=== PATIENT | male | born 1955 | race Caucasian/White ===

== ENCOUNTER 2017-05-30 12:42 | Day surgery (SDC) | payer OTHER ==
--- NOTE | 2017-05-30 11:27 | PDGENHP ---
History & Physical Chief Complaint: R ankle History of Present Illness: 61 y/o fell yielding R carmen pain/swelling, difficulty ambulating Pertinent Past, Social, Family History: Previous smoker 2 PPD. VT. Renal disease - dialysis Relevant Physical Exam: Right ankle swollen tender. Head - normocephalic. Chest - CTA. Abd S,NT,ND Cardiorespiratory Assessment: Previous VT, arrythmia Assessment & Plan Assessment: Right lateral malleolus fx Plan: ORIF R lat malleolus fx
[~2017-05-30 12:42] MED LIST: ceFAZolin 2 GM/DEXTROSE 100 ML IV ONE; ceFAZolin 2 GM/SWFI 2 GM/20 ML SYR IVP ONE
[2017-05-30] MEDS ORDERED: NS 1,000 ML IV ONE (13:12)
[2017-05-30 13:46] LABS: PLATELET COUNT 132 10^3/uL (150-400)
[2017-05-30] MEDS ORDERED: ceFAZolin 2 GM/SWFI 20 ML SYR IVP ONE (13:53)
[2017-05-30 13:59] LABS: INR 0.97 (0.83-1.16); PROTIME(PATIENT) 13.1 SEC (12.0-15.0)
[2017-05-30] MEDS ORDERED: fentaNYL 100 MCG/2 ML INJ ONE (14:37)
[2017-05-30] MEDS ORDERED: MIDAZOLAM 2 MG/2 ML VIAL ONE (14:38)
[2017-05-30] MEDS ORDERED: PROPOFOL/EMULSION 500 MG/50 ML BOTTLE IV ONE (14:38)
[2017-05-30] MEDS ORDERED: BUPIVACAINE 0.5% 10 ML SDV ONE ×4 (14:54→15:06)
--- NOTE | 2017-05-30 15:04 | PDANEPAE ---
ANE History of Present Illness right lateral malleolus ORIF. h/o cardiac arrest 1.5 months ago 2/ 2hyperkalemia. Has since had dialysis catheter fixed. K today 5.5. ANE Past Medical History - Cardiovascular History Hx Hypertension: Yes Hx Arrhythmias: No Hx Chest Pain: No Hx Coronary Artery / Peripheral Vascular Disease: Yes Hx CHF / Valvular Disease: No Hx Palpitations: No Cardiovascular History Comment: CARDIAC ARREST 05/29/2016 TREATED AT [facility] RESULT OF BLOCKED AV FISTULA -HYPERKALEMIA. PACER/ICD PLACED 04/2015 - Pulmonary History Hx COPD: No Hx Asthma/Reactive Airway Disease: No Hx Recent Upper Respiratory Infection: No Hx Oxygen in Use at Home: No Hx Sleep Apnea: Yes Sleep Apnea Screening Result - Last Documented: Positive Pulmonary History Comment: JALEESA USES C-PAP INSTRUCTED TO BRING DOS - Neurologic History Hx Cerebrovascular Accident: No Hx Seizures: No Hx Dementia: No - Endocrine History Hx Diabetes: No Obesity: yes - Renal History Hx Renal Disorders: Yes Renal History Comment: ESRD. DIALYSIS 5X WEEK - Liver History Hx Hepatic Disorders: No - Neurological & Psychiatric Hx Hx Neurological and Psychiatric Disorders: No - Cancer History Hx Cancer: Yes Cancer History Comment: KIDNEY - Congenital Disorder History Hx Congenital Disorders: No - GI History GERD: no Hx Gastrointestinal Disorders: No - Other Health History Other Health History: FELL EARLY MAY AND FX RT ANKLE - Chronic Pain History Chronic Pain: No - Surgical History Prior Surgeries: RT SUBCLAVIAN 05/30/2016. RT NEPHRECTOMY 09/2015. PERITONEAL DIALYSIS CATHETER PLACEMENT 07/01/2015. PORT PLACEMENT IN RIGHT SHOULDER 2015. CYSTOSCOPY. PACEMAKER PLACEMENT 04/2015 ANE Review of Systems Review of systems is: negative Review of Systems: - Exercise capacity METS (RN): 4 METS - Pacemaker Pacemaker Type: Bi-Ventricular, Permanent Pacer/Defib Pacemaker Hairspring I Inspector: Status4 Date Pacemaker Last Checked: 07/14/2015 ANE Patient History - Allergies Allergies/Adverse Reactions: No Known Allergies Allergy (Verified 11/04/15 17:54) - Home Medications Home medications: home medication list seen and reviewed Home Medications: Metoprolol Tartrate [Lopressor 100 mg (*)] 100 mg PO HS 10/18/15 [Last Taken ] clonazePAM [klonoPIN (*)] 2 mg PO HS PRN 10/18/15 [Last Taken 05/29/17] Gabapentin HS 05/29/17 [Last Taken 05/29/17] - NPO status NPO Since - Liquids (Date): 05/30/17 NPO Since - Liquids (Time): 06:00 NPO Since - Solids (Date): 05/29/17 NPO Since - Solids (Time): 21:00 - Anes Hx Anes Hx: no prior problems - Smoking Hx Smoking Status: Former smoker ANE Labs/Vital Signs - Labs Result Diagrams: 05/30/17 13:26 05/30/17 13:26 - Vital Signs Blood Pressure: 97/68 Heart Rate: 90 Respiratory Rate: 16 O2 Sat (%): 95 Height: 190.5 cm Weight: 113.398 kg ANE Physical Exam - Airway Neck exam: FROM Mallampati Score: Class 1 Mouth exam: normal dental/mouth exam - Pulmonary Pulmonary: no respiratory distress - Cardiovascular Cardiovascular: regular rate and rhythym - ASA Status ASA Status: IV ANE Anesthesia Plan Anesthesia Plan: GA with mask Regional Anesthesia: single shot NB, adductor canal FNB, popliteal SNB
[2017-05-30] MEDS ORDERED: PHENYLEPHRINE HCL 100 MCG/ML SYR ONE (15:33)
[2017-05-30] MEDS ORDERED: ACETAMINOPHEN 500 MG TAB PO PRN (15:49)
[2017-05-30] MEDS ORDERED: fentaNYL 100 MCG/2 ML INJ IVP PRN (15:49)
[2017-05-30] MEDS ORDERED: HYDROmorphONE/DILAUDID 1 MG/ML INJ IVP PRN (15:49)
[2017-05-30] MEDS ORDERED: ALBUTEROL 3 ML DEYVIAL IH PRN (15:49)
[2017-05-30] MEDS ORDERED: NALOXONE HCL 0.4 MG/ML INJ IVP PRN (15:49)
[2017-05-30] MEDS ORDERED: NS 500 ML IV PRN (15:49)
[2017-05-30] MEDS ORDERED: ONDANSETRON 4 MG/2 ML VIAL IVP PRN (15:49)
[2017-05-30] MEDS ORDERED: OXYCODONE/APAP 5/325 TAB PO PRN (15:49)
--- NOTE | 2017-05-30 16:12 | POSTOPPROG ---
Post Op Note Date of Operation: 05/30/17 Surgeon: Levar Flanagan Anesthesia: IV Sedation Pre-op Diagnosis: R lat mal fra Post-op Diagnosis: same Procedure: ORIF R lat mal fracture Inf/Abcess present in the surg proc area at time of surgery?: No EBL: Minimal
[2017-05-30 16:18] VITALS: TEMP 97.5
--- NOTE | 2017-05-30 16:24 | POSTANESTH ---
Post Anesthetic Evaluation Cardiovascular Status: Normal, Stable Respiratory Status: Normal, Stable Level of Consciousness/Mental Status: Can Participate in Eval Pain Control: Adequate, Prn Tx Ordered Nausea/Vomiting Control: Adequate, Prn Tx Ordered Complications Possibly Related to Anesthesia: None Noted
[2017-05-30 17:02] VITALS: BP 106/75; PULSE 85; RESP 14; O2SAT 97
--- NOTE | 2017-05-31 11:23 | GOP ---
[f rep st] OPERATIVE REPORT DATE OF OPERATION: 05/30/2017 SURGEON: Levar Flanagan MD ANESTHESIA: Popliteal block performed by the anesthesiologist at my request for both intraoperative analgesia and postoperative pain management, plus IV sedation. PREOPERATIVE DIAGNOSIS: Right lateral malleolus fracture. POSTOPERATIVE DIAGNOSIS: Right lateral malleolus fracture. PROCEDURE PERFORMED: 1. Open reduction, internal fixation, right lateral malleolus fracture. 2. Intraoperative use of fluoroscopy. FINDINGS: ESTIMATED BLOOD LOSS: Minimal. INDICATIONS: The patient sustained a displaced lateral malleolus fracture about 1 week ago in a fall. Based on the displaced unstable nature of his injury it was recommended that operative treatment consisting of open reduction , internal fixation be pursued. The patient acknowledged he understood the potential risks, including, but not limited to, bleeding, infection, neurovascular damage, limb loss, limited limb function, malunion, nonunion, need for hardware removal, pain, functional limitations, arthrosis despite operative treatment, and anesthetic risks. He acknowledged he understood the potential risks, planned procedure, and postoperative plan well. He had his questions answered prior to surgery. He gave his consent for the operative procedure. DESCRIPTION OF PROCEDURE: The patient was brought to the operating room after IV antibiotics were administered. Popliteal block was performed by the anesthesiologist at my request for postoperative pain management. He was placed in a supine position where IV sedation was administered. A tourniquet was placed on his right calf and the patient was transferred to a left lateral decubitus position on the operating table with beanbag support, axillary roll and padding all bony prominences. The right lower leg was prepped and draped in standard sterile fashion. After Isidro wrap exsanguination, tourniquet was inflated to 250. A longitudinal incision was made along the posterior border of the distal fibula. Skin and subcutaneous tissue were sharply incised. Sharp dissection was carried anterior to the peroneal tendons exposing the posterior border of the fibula. The dental pick was used to free up interposed fibrous tissue at the fracture site. Based on the nature of the fracture, a posterior "antiglide" plating was performed. A 7 hole 1/3 tubular plate was placed along the posterior border of the distal fibula. Just proximal to the plane of the fracture, 3.5 mm bicortical screw was placed through the plate in a posterior to anterior direction. As the screw was tightened, the reduction was fine tuned into an anatomic alignment with a dental pick and 2-point reduction clamp. With the fracture held in an anatomically reduced position, a 2.7 mm cortical screw was placed through the plate in a posterior to anterior direction in lag fashion across the fracture. A supplemental 2.7 mm screw was placed distal to this, as well as a 3.5 mm bicortical screw placed in the most proximal hole in the plate. Fluoroscopic views confirmed favorable reduction and hardware placement. Attention was directed toward closure. The deep fascia layer was closed with 2- 0 Vicryl suture in interrupted fashion. Subcutaneous tissue closed with 3-0 Vicryl suture in interrupted fashion. Skin closed with 4-0 nylon interrupted sutures. The wounds were dressed with sterile Adaptic, 4 x 4, and Webril, and leg was placed in a below-knee splint. Patient tolerated the procedure well and was taken to the recovery room, extubated, in stable condition postoperatively. All sponge, needle, and instrument counts were reported to be correct. DRAINS: None. COMPLICATIONS: None. PLAN: The patient was discharged home nonweightbearing on his operative extremity. /[id number]/MODL MTDD
== END 2017-05-30 17:59 | disposition home or self-care (01) ==
LOC: FSGY 12:42
PROVIDERS: ATTEND Orthopaedic Surgery Foot and Ankle Surgery
PROC: 0QSJ04Z Reposition Right Fibula with Internal Fixation Device, Open Approach (ICD-10-PCS; principal; 2017-05-30 14:00)
DX: S82.61XA Displaced fracture of lateral malleolus of right fibula, initial encounter for closed fracture (principal)
CPT/HCPCS: C1713; J0690; J2250; J2370; J2704; J3010

== ENCOUNTER 2017-08-11 15:35 | Observation (INO) | payer OTHER ==
--- NOTE | 2017-08-11 15:45 | EDPHY ---
H & P Stated Complaint: Dialysis cath 'came out' from right chest. Time Seen by Provider: 08/11/17 15:45 HPI/ROS: HPI CHIEF COMPLAINT: Dialysis catheter pulled out of right chest HISTORY OF PRESENT ILLNESS: Patient is a 61-year-old male, he has end-stage renal disease, he does at home dialysis 5 days a week. He is due for dialysis tomorrow. He did complete 2 hr of dialysis today which is normal for him. He was putting shirt back on and dialysis catheter fell out of the right chest are was pulled out. He denies any complaints. Denies chest pain or shortness of breath. Came to emergency room to have a new dialysis catheter placed. Past Medical History: End-stage renal disease, renal cell carcinoma, hypertension, coronary artery disease Past Surgical History: Av fistula surgery, nephrectomy, Social History: Denies drugs alcohol tobacco. Family History: Noncontributory ROS REVIEW OF SYSTEMS: A comprehensive 10 point review of systems is otherwise negative aside from elements mentioned in the history of present illness. Exam Constitutional triage nursing summary reviewed, vital signs reviewed, awake/ alert. Eyes normal conjunctivae and sclera, EOMI, PERRLA. HENT normal inspection, atraumatic, moist mucus membranes, no epistaxis, neck supple/ no meningismus, no raccoon eyes. Respiratory clear to auscultation bilaterally, normal breath sounds, no respiratory distress, no wheezing. Cardiovascular rate normal, regular rhythm, no murmur, no edema, distal pulses normal. Gastrointestinal soft, non-tender, no rebound, no guarding, normal bowel sounds, no distension, no pulsatile mass. Genitourinary no CVA tenderness. Musculoskeletal no midline vertebral tenderness, full range of motion, no calf swelling, no tenderness of extremities, no meningismus, good pulses, neurovascularly intact. Skin pink, warm, & dry, no rash, skin atraumatic. Neurologic awake, alert and oriented x 3, AAOx3, moves all 4 extremities equally, motor intact, sensory intact, CN II-XII intact, normal cerebellar, normal vision, normal speech. Psychiatric normal mood/affect. Heme/Lymph/Immune no lymphadenopathy. Differential Diagnosis: Includes but is not limited to in a particular order need for dialysis catheter, dialysis catheter removal, pneumothorax Medical Decision Making: Plan for this patient chest x-ray two view to rule out pneumothorax, and will consult Dr. Hankins for possible dialysis catheter placement. Re-evaluation: Chest x-ray two view reviewed by myself. No evidence of pneumothorax. 1607: I did consult Dr. CLAUDE Hankins he will come and see and evaluate the patient for placement of the dialysis cath. 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, GLOMERULAR NEPHRITIS, HEMACHROMATOSIS, OAP, MIGRAIN KHAN, hypertension, right nephrectomy and ureter removal, hyperlipidemia, TURP, hemodilysis MWF - Social History Smoking Status: Former smoker Constitutional: Initial Vital Signs Temperature (C) 36.3 C 08/11/17 15:40 Heart Rate 102 H 08/11/17 15:40 Respiratory Rate 16 08/11/17 15:40 Blood Pressure 110/99 H 08/11/17 15:40 O2 Sat (%) 93 08/11/17 15:40 O2 Delivery Mode Room Air Allergies/Adverse Reactions: No Known Allergies Allergy (Verified 11/04/15 17:54) Home Medications: Medication Instructions Recorded Gabapentin [Neurontin 100 MG (*)] 300 mg PO HS 08/11/17 Metoprolol Tartrate 100 mg PO HS 08/11/17 Sucroferric Oxyhydroxide [Velphoro] 1,000 mg PO TIDMEAL 08/11/17 clonazePAM [klonoPIN (*)] 2 mg PO HS 08/11/17 Hydrocodone/APAP 5/325 [[place] 1 - 2 tab PO Q6H PRN #20 tab 08/12/17 5/325 (*)] Medical Decision Making - Data Points Medications Given: Discontinued Medications Bacitracin (Bacitracin Ointment Tube) Confirm Administered Dose 14.2 jacobo TP .STK -MED ONE Stop: 08/12/17 08:41 Last Admin: 08/12/17 09:01 Dose: 1 tube Bupivacaine HCl (Sensorcaine 0.5% Vial) Confirm Administered Dose 30 ml .ROUTE .STK-MED ONE Stop: 08/12/17 07:12 Last Admin: 08/12/17 08:34 Dose: 6 ml Cefazolin Sodium (Ancef) Confirm Administered Dose [address] ONE Stop: 08/12/17 08:19 Last Admin: 08/12/17 08:19 Dose: 1 gm Heparin Sodium (Porcine) (Heparin Sodium) Confirm Administered Dose 1,[address] ONE Stop: 08/12/17 07:13 Last Admin: 08/12/17 08:37 Dose: Not Given Heparin Sodium (Porcine) (Heparin Sodium) Confirm Administered Dose 50,[address] ONE Stop: 08/12/17 07:13 Last Admin: 08/12/17 08:37 Dose: 50,000 unit Heparin Sodium (Porcine) (Heparin Lock Flush) Confirm Administered Dose 2,[address] ONE Stop: 08/12/17 07:17 Last Admin: 08/12/17 08:36 Dose: 2,500 unit Lidocaine HCl (Lidocaine Hcl 1%) Confirm Administered Dose 300 mg .ROUTE .[facility] ONE Stop: 08/12/17 07:12 Last Admin: 08/12/17 09:01 Dose: Not Given Departure - Departure Disposition: [place] [facility] In[facility] Acute Clinical Impression: Complications, dialysis, catheter, mechanical Qualifiers: Encounter type: initial encounter Qualified Code(s): T82.49XA - Other complication of vascular dialysis catheter, initial encounter Condition: Fair
--- NOTE | 2017-08-11 17:11 | GHP ---
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 He does have a history of arteriovenous fistula creation in his left wrist. This does have a thrill. However, they tell me it is nonfunctional due to an "occlusion" secondary to his pacemaker wiring. I do not have a record of this at this moment. He denies any pain, swelling, or redness at the catheter site. They had no bleeding upon dislodgement of the catheter. 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 They now present to the emergency department. PAST MEDICAL HISTORY: As per HPI includes end-stage renal disease on hemodialysis at home, also glomerular nephritis, renal cancer, permanent pacemaker. PAST SURGICAL AND PROCEDURAL HISTORY: Includes tunneled neck catheter, left upper extremity radiocephalic AV fistula creation, nephrectomy for renal cancer , permanent pacemaker placement, ORIF of an ankle fracture, and ablation radiotherapy for metastatic renal cancer in the spine. MEDICATIONS: Include metoprolol, gabapentin, Klonopin, and Velphoro. ALLERGIES: No known drug allergies. 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 FAMILY HISTORY: Noncontributory. REVIEW OF SYSTEMS: Negative aside from HPI. PHYSICAL EXAMINATION: GENERAL: A 61-year-old male, alert and oriented x3, in no acute distress. HEENT: Normocephalic, atraumatic. Sclerae white. Right neck catheter site is clean without erythema. CHEST: Clear to auscultation bilaterally. No wheezes, rhonchi, or rales. CARDIAC: Regular rate and rhythm. ABDOMEN: Soft, nontender. EXTREMITIES: Warm and dry with fistula at the left wrist with good thrill, compressible. IMPRESSION: This is a 61-year-old male with end-stage renal disease, needing dialysis, now with lost access after his neck catheter became dislodged. PLAN: Admit the patient for surgery. We plan to place a tunneled neck catheter with fluoroscopic guidance. This will likely be right-sided due to his pacemaker. Will also have to make arrangements for pacemaker interrogation. He will be n.p.o. Will get preoperative labs including a basic metabolic panel. At a later date, we can try to investigate his left upper extremity fistula further versus creating a right sided fistula. Patient seemed happy with his neck catheter at the time being. Dr. Hankins will also see and examine the patient. Surgery will likely be tomorrow, although patient is pushing for surgery tonight. Either way, he will stay overnight in the hospital. He did eat rice with turkey and water at 1:00 p.m. today. /[id number]/MODL MTDD
[2017-08-11 18:31] LABS: PLATELET COUNT 102 10^3/uL (150-400)
--- NOTE | 2017-08-11 20:47 | SOAPPROG ---
SOAP Progress Note Assessment/Plan: Assessment: 61 male with need for replacement dialysis cath/ risks and options fully discussed chest clear cor rr abd soft extrem left avf poor flow Plan:palindrome cath in am 08/11/17 20:46 Objective: Vital Signs Temp Pulse Resp BP Pulse Ox 36.4 C 93 16 109/82 H 97 08/11/17 20:28 08/11/17 20:28 08/11/17 20:28 08/11/17 20:28 08/11/17 20:28 Laboratory Results 08/11/17 18:25 08/11/17 18:25 08/10/17 08/11/17 08/12/17 05:59 05:59 05:59 Intake Total 350 Output Total 0 Balance 350 ICD10 Worksheet Patient Problems: Problems Problem Status Onset Congestive heart failure (CHF) Acute Hematuria Acute Hyperkalemia, diminished renal excretion Acute Pericardial effusion Acute Renal failure (ARF), acute on chronic Acute Vomiting and diarrhea Acute Benign prostatic hypertrophy Chronic Cardiac defibrillator in place Chronic Cardiomyopathy Chronic Chronic kidney disease, stage V Chronic Hemochromatosis Chronic LBBB (left bundle branch block) Chronic Membranous glomerulonephritis Chronic Obstructive sleep apnea Chronic Pacemaker Chronic
[2017-08-12] MEDS ORDERED: BUPIVACAINE 0.5% 30 ML SDV ONE (07:11)
[2017-08-12] MEDS ORDERED: HEPARIN 1000 UNIT/1 ML MDV ONE (07:12)
[2017-08-12] MEDS ORDERED: HEPARIN 50,000 UNIT/10 ML VIAL ONE (07:12)
--- NOTE | 2017-08-12 07:41 | PDANEPAE ---
ANE History of Present Illness ESRD now with dislodged Palindrome catheter ANE Past Medical History - Cardiovascular History Hx Hypertension: Yes Hx Arrhythmias: No Hx Chest Pain: No Hx Coronary Artery / Peripheral Vascular Disease: Yes Hx CHF / Valvular Disease: No Hx Palpitations: No Cardiovascular History Comment: CARDIAC ARREST 05/29/2016 TREATED AT [facility] RESULT OF BLOCKED AV FISTULA -HYPERKALEMIA. PACER/ICD PLACED 04/2015 - Pulmonary History Hx COPD: No Hx Asthma/Reactive Airway Disease: No Hx Recent Upper Respiratory Infection: No Hx Oxygen in Use at Home: Yes O2 in Use at Home (L/minute): 2 Hx Sleep Apnea: Yes Sleep Apnea Screening Result - Last Documented: Positive Pulmonary History Comment: JALEESA USES C-PAP INSTRUCTED TO BRING DOS - Neurologic History Hx Cerebrovascular Accident: No Hx Seizures: No Hx Dementia: No - Endocrine History Hx Diabetes: No - Renal History Hx Renal Disorders: Yes Renal History Comment: ESRD. DIALYSIS 5X WEEK - Liver History Hx Hepatic Disorders: No - Neurological & Psychiatric Hx Hx Neurological and Psychiatric Disorders: No - Cancer History Hx Cancer: Yes Cancer History Comment: KIDNEY - Congenital Disorder History Hx Congenital Disorders: No - GI History Hx Gastrointestinal Disorders: No - Other Health History Other Health History: FELL EARLY MAY AND FX RT ANKLE - Chronic Pain History Chronic Pain: No - Surgical History Prior Surgeries: RT SUBCLAVIAN 05/30/2016. RT NEPHRECTOMY 09/2015. PERITONEAL DIALYSIS CATHETER PLACEMENT 07/01/2015. PORT PLACEMENT IN RIGHT SHOULDER 2015. CYSTOSCOPY. PACEMAKER PLACEMENT 04/2015 ANE Review of Systems Review of Systems: - Exercise capacity METS (RN): 4 METS - Pacemaker Pacemaker Relay Checker: GalaDo (will have ICD turned off) Date Pacemaker Last Checked: 07/14/2015 ANE Patient History - Allergies Allergies/Adverse Reactions: No Known Allergies Allergy (Verified 11/04/15 17:54) - Home Medications Home medications: home medication list seen and reviewed Home Medications: Gabapentin [Neurontin 100 MG (*)] 300 mg PO HS 08/11/17 [Last Taken 08/11/17] Metoprolol Tartrate [Metoprolol Tartrate] 100 mg PO HS 08/11/17 [Last Taken 09/22] Sucroferric Oxyhydroxide [Velphoro] 1,000 mg PO TIDMEAL 08/11/17 [Last Taken 10/22 12:00] clonazePAM [klonoPIN (*)] 2 mg PO HS 08/11/17 [Last Taken 08/10/17] - NPO status NPO Status: no food or drink >8 hours NPO Since - Liquids (Date): 08/12/17 NPO Since - Liquids (Time): 00:00 NPO Since - Solids (Date): 08/12/17 NPO Since - Solids (Time): 00:00 - Anes Hx Anes Hx: no prior problems - Smoking Hx Smoking Status: Former smoker - Alcohol Use Alcohol Use: Rarely - Family Anes Hx Family Anes Hx: none ANE Labs/Vital Signs - Labs Result Diagrams: 08/11/17 18:25 08/11/17 18:25 - Vital Signs Blood Pressure: 98/65 Heart Rate: 95 Respiratory Rate: 16 O2 Sat (%): 95 Height: 190 cm Weight: 113 kg ANE Physical Exam - Airway Neck exam: FROM Mallampati Score: Class 2 Mouth exam: normal dental/mouth exam - Pulmonary Pulmonary: no respiratory distress - Cardiovascular Cardiovascular: regular rate and rhythym - ASA Status ASA Status: III ANE Anesthesia Plan Anesthesia Plan: GA with mask Total IV Anesthesia: Yes
[2017-08-12] MEDS ORDERED: fentaNYL 100 MCG/2 ML INJ ONE (07:51)
[2017-08-12] MEDS ORDERED: PROPOFOL/EMULSION 500 MG/50 ML BOTTLE IV ONE ×2 (07:53→08:19)
[2017-08-12] MEDS ORDERED: LIDOCAINE 2% 100 MG/5 ML SYR ONE (07:55)
[2017-08-12] MEDS ORDERED: PHENYLEPHRINE HCL 100 MCG/ML SYR ONE (08:10)
[2017-08-12] MEDS ORDERED: ceFAZolin 1 GM VIAL ONE (08:18)
[2017-08-12] MEDS: LIDOCAINE 1% 300 MG/30 ML SDV ONE ×2 (08:36→09:01)
[2017-08-12] MEDS ORDERED: BACITRACIN ZINC 14.2 GM OINTTUBE TP ONE (08:40)
--- NOTE | 2017-08-12 09:18 | POSTOPPROG ---
Post Op Note Date of Operation: 08/12/17 Surgeon: Flavio Hankins Anesthesiologist: CHANTE Anesthesia: GET(General Endotracheal) Pre-op Diagnosis: RENAL FAILURE Post-op Diagnosis: SAME Indication: LOSS OF ACCESS Procedure: IJ PALINDROME CATH WITH FLOURO AND ULTRASOUND GUIDANCE Findings: GOOD FLOW AND POSITION Inf/Abcess present in the surg proc area at time of surgery?: Yes Depth: Deep Incisional (Fascial) EBL: Minimal Complications: 0
[2017-08-12] MEDS ORDERED: ACETAMINOPHEN 500 MG TAB PO PRN (09:23)
[2017-08-12] MEDS ORDERED: ONDANSETRON 4 MG/2 ML VIAL IVP PRN (09:23)
[2017-08-12] MEDS ORDERED: NALOXONE HCL 0.4 MG/ML INJ IVP PRN (09:23)
[2017-08-12] MEDS ORDERED: NS 500 ML IV PRN (09:23)
[2017-08-12] MEDS ORDERED: ALBUTEROL 3 ML DEYVIAL IH PRN (09:23)
[2017-08-12] MEDS ORDERED: LABETALOL HCL 5 MG/ML 20 ML MDV IVP PRN (09:23)
[2017-08-12] MEDS ORDERED: PHENYLEPHRINE HCL 100 MCG/ML SYR IVP PRN (09:23)
[2017-08-12] MEDS ORDERED: fentaNYL 100 MCG/2 ML INJ IVP PRN (09:23)
[2017-08-12 11:26] VITALS: BP 93/59
== END 2017-08-12 11:44 | disposition home or self-care (01) ==
LOC: F3E 20:18
PROVIDERS: ADMIT Surgery; ATTEND Surgery
DX: T82.42XA Displacement of vascular dialysis catheter, initial encounter (principal); Z46.82 Encounter for fitting and adjustment of non-vascular catheter; N18.6 End stage renal disease; I12.0 Hypertensive chronic kidney disease with stage 5 chronic kidney disease or end stage renal disease; N28.89 Other specified disorders of kidney and ureter; I25.10 Atherosclerotic heart disease of native coronary artery without angina pectoris; G43.909 Migraine, unspecified, not intractable, without status migrainosus; E78.5 Hyperlipidemia, unspecified; G47.33 Obstructive sleep apnea (adult) (pediatric); Z85.528 Personal history of other malignant neoplasm of kidney; Z87.891 Personal history of nicotine dependence; Z95.0 Presence of cardiac pacemaker; Z99.2 Dependence on renal dialysis; Z90.5 Acquired absence of kidney
CPT/HCPCS: 36558; 71045; 71046; 76001; G0378; C1750; J0690; J1642; J1644; J2001; J2370; J2704; J3010

== ENCOUNTER 2018-07-27 13:58 | Emergency (ER) | payer OTHER ==
--- NOTE | 2018-07-27 14:11 | EDPHY ---
H & P Stated Complaint: cp stabbing since 0200 Time Seen by Provider: 07/27/18 14:10 HPI/ROS: CHIEF COMPLAINT: Chest pain HISTORY OF PRESENT ILLNESS: The patient presents to the ED with complaints of acute chest pain that began at 2:00 a.m. In the morning initially rated as severe lasting approximately 30 min. The patient reports that his pain subsided and has more less resolved. He has no prior history of nocturnal chest pain. The patient denies symptoms which he feels were consistent with gastroesophageal reflux disease. The patient does have a history of end-stage dialysis. He received dialysis at home 5 times a week. Last dialysis was on Friday. The patient does have a history of cardiomyopathy, arrhythmia and permanent place maker. The patient denies prior history of coronary artery disease. He does have a stent in his subclavian artery. The patient reportedly had a cardiac arrhythmia which resulted in arrest secondary to hyperkalemia a little over a year ago. He was treated at [facility] and at that point time had a coronary angiogram which was negative by the patient's report. The patient denies any asymmetric calf pain or swelling. He denies pleuritic chest pain. REVIEW OF SYSTEMS: A comprehensive 10 point review of systems is otherwise negative aside from elements mentioned in the history of present illness. 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, GLOMERULAR NEPHRITIS, HEMACHROMATOSIS, OAP, MIGRAIN KHAN, hypertension, right nephrectomy and ureter removal, hyperlipidemia, TURP, hemodilysis MWF - Social History Smoking Status: Former smoker - Physical Exam Exam: General Appearance: Alert, no distress Eyes: Pupils equal and round no pallor or injection ENT, Mouth: Mucous membranes moist Respiratory: There are no retractions, lungs are clear to auscultation Cardiovascular: Regular rate and rhythm Gastrointestinal: Abdomen is soft and nontender, no masses, bowel sounds normal Neurological: A&O, normal motor function, normal sensory exam, normal cranial nerves Skin: Warm and dry, no rashes Musculoskeletal: Neck is supple nontender Extremities: symmetrical, full range of motion Constitutional: Initial Vital Signs Temperature (C) 36.5 C 07/27/18 14:02 Heart Rate 117 H 07/27/18 14:02 Respiratory Rate 18 07/27/18 14:02 Blood Pressure 138/79 H 07/27/18 14:02 O2 Sat (%) 96 07/27/18 14:02 O2 Delivery Mode Room Air Allergies/Adverse Reactions: No Known Allergies Allergy (Verified 07/27/18 14:00) Home Medications: Medication Instructions Recorded Gabapentin [Neurontin 100 MG (*)] 300 mg PO HS 08/11/17 Metoprolol Tartrate 100 mg PO HS 08/11/17 Sucroferric Oxyhydroxide [Velphoro] 1,000 mg PO TIDMEAL 08/11/17 clonazePAM [klonoPIN (*)] 2 mg PO HS 08/11/17 Oxy Ir 07/27/18 Medical Decision Making - Diagnostics EKG Interpretation: EKG: Complete interpretation has been separately recorded in the [employer] archive. Summary impression: Left bundle branch block, rate 77, nonspecific ST T wave changes are noted Imaging Results: Imaging Impressions Chest X-Ray 07/27/18 14:19 Impression: 1. New pacemaker unit is seen from right-sided approach. 2. New subsegmental atelectasis left base. ED Course/Re-evaluation: Patient's initial EKG demonstrates left bundle branch block with nonspecific ST T wave changes. Patient did have a left bundle branch block noted on his prior EKG in 2014. The patient presents the emergency department after an episode of severe chest pain at 2:00 a.m. In the morning which resolved after 30 min. The patient's troponin is normal. Patient does have a history of cardiomyopathy which is nonischemic in nature. The patient had a negative angiogram within the past year. The patient was offered admission to the hospital versus discharged home. He prefers to go home at this point time. With a negative troponin, normal EKG and negative angiogram within the past year he is felt to be low risk for undiagnosed acute coronary syndrome. The patient has been told that we cannot fully rule out the possibility of underlying coronary artery disease. The patient is comfortable returning to the emergency department for any worsening symptoms or other concerns. Differential Diagnosis: Differential diagnosis considered includes gastroesophageal reflux disease, pleurisy, costochondritis, acute coronary syndrome, myocardial infarction, myofascial strain - Data Points Laboratory Results: Laboratory Results 07/27/18 14:10 07/27/18 14:10 07/27/18 07/27/18 07/27/18 14:14 14:10 14:10 WBC 4.92 10^3/uL 10^3/uL (3.80-9.50) RBC 4.20 10^6/uL L 10^6/uL (4.40-6.38) Hgb 14.2 g/dL g/dL (13.7-17.5) Hct 43.4 % % (40.0-51.0) MCV 103.3 fL H fL (81.5-99.8) MCH 33.8 pg pg (27.9-34.1) MCHC 32.7 g/dL g/dL (32.4-36.7) RDW 13.4 % % (11.5-15.2) Plt Count 103 10^3/uL L 10^3/uL (150-400) MPV 9.8 fL fL (8.7-11.7) Neut % (Auto) 58.4 % % (39.3-74.2) Lymph % (Auto) 14.0 % L % (15.0-45.0) Green % (Auto) 18.5 % H % (4.5-13.0) Eos % (Auto) 7.5 % % (0.6-7.6) Baso % (Auto) 1.2 % % (0.3-1.7) Nucleat RBC Rel Count 0.0 % % (0.0-0.2) Absolute Neuts (auto) 2.87 10^3/uL 10^3/uL (1.70-6.50) Absolute Lymphs (auto) 0.69 10^3/uL L 10^3/uL (1.00-3.00) Absolute Monos (auto) 0.91 10^3/uL H 10^3/uL (0.30-0.80) Absolute Eos (auto) 0.37 10^3/uL 10^3/uL (0.03-0.40) Absolute Basos (auto) 0.06 10^3/uL 10^3/uL (0.02-0.10) Absolute Nucleated RBC 0.00 10^3/uL 10^3/uL (0-0.01) Immature Gran % 0.4 % % (0.0-1.1) Immature Gran # 0.02 10^3/uL 10^3/uL (0.00-0.10) Sodium 133 mEq/L L mEq/L (135-145) Potassium 5.4 mEq/L H mEq/L (3.5-5.2) Chloride 91 mEq/L L mEq/L (97-110) Carbon Dioxide 25 mEq/l mEq/l (22-31) Anion Gap 17 mEq/L H mEq/L (6-14) BUN 86 mg/dL H mg/dL (7-23) Creatinine 12.2 mg/dL H* mg/dL (0.7-1.3) Estimated GFR 4 Glucose 91 mg/dL mg/dL (70-100) Calcium 9.1 mg/dL mg/dL (8.5-10.4) POC Troponin I 0.03 ng/mL ng/mL (0.00-0.08) Point of Care Test Results: Chemistry 07/27/18 14:14 POC Troponin I 0.03 ng/mL ng/mL (0.00-0.08) Departure - Departure Disposition: Home, Routine, Self-Care Clinical Impression: Chest pain Condition: Good Instructions: Chest Pain (ED) Additional Instructions: 1. Based upon the testing done in the Emergency Department today we see no evidence of a heart attack. 2. We are unable to fully exclude coronary artery disease based upon the testing available in the Emergency Department. 3. For this reason, we would like you to be seen by cardiology for consideration of additional testing within the next 3 days. 4. Please contact the table games dealer you have been referred to schedule this appointment as soon as possible. Their offices are typically open from 8:30am- 5pm M-F. 5. Please return to the Emergency Department immediately for any recurrent chest pain, difficulty breathing or other concerns. Referrals: Hayes Perez MD [Medical Doctor] - As per Instructions
--- NOTE | 2018-07-27 14:29 | CPEKG ---
Test Reason : OPEN Blood Pressure : / mmHG Vent. Rate : 077 BPM Atrial Rate : 078 BPM P-R Int : 199 ms QRS Dur : 173 ms QT Int : 450 ms P-R-T Axes : 008 -10 159 degrees QTc Int : 510 ms Sinus rhythm Left bundle branch block Confirmed by Keon Willis ([id number] on 07/27/2018 2:29:01 PM Referred By: Keon Willis Confirmed By:Keon Willis
[2018-07-27 14:33] LABS: PLATELET COUNT 103 10^3/uL (150-400)
[2018-07-27 15:59] VITALS: BP 153/96
== END 2018-07-27 16:00 | disposition home or self-care (01) ==
DX: I45.2 Bifascicular block (principal); N18.6 End stage renal disease; I12.0 Hypertensive chronic kidney disease with stage 5 chronic kidney disease or end stage renal disease; I25.10 Atherosclerotic heart disease of native coronary artery without angina pectoris; E78.5 Hyperlipidemia, unspecified; Z95.0 Presence of cardiac pacemaker; Z99.2 Dependence on renal dialysis; Z90.5 Acquired absence of kidney; Z87.891 Personal history of nicotine dependence
CPT/HCPCS: 84484-ER